=== PATIENT | male | born 1935 | race Caucasian/White ===

== ENCOUNTER 2024-01-17 14:02 | Inpatient (IN) | payer MEDICARE ==
[~2024-01-17] VITALS: Ht 170.2 cm; Wt 83.0 kg
[2024-01-17] VITALS (37 sets, daily range): BP systolic 97–188; BP diastolic 67–160
[2024-01-17 14:28] LABS: BASO% 0.2 % (0-3); EOS% 0.8 % (0-8); IMMATURE GRANULOCYTES 0.2 % (0.0-5.0); LYMPH% 7.8 % (15-41); MEAN CORPUSCULAR HGB 31.6 pG CALC (26.0-32.0); MEAN CORPUSCULAR HGB CONC 31.6 g/dL CAL (32.0-36.0); MONO% 7.3 % (2-13); NEUT# 8.28 thou/uL (1.82-7.42); NEUT% 83.7 % (42-76); RED BLOOD COUNT 5.57 mill/uL (4.70-6.10); RED CELL DISTRI WIDTH 12.5 % (11.5-15.5)
[2024-01-17 14:29] LABS: HEMATOCRIT 55.7 % (39.0-50.0); HEMOGLOBIN 17.6 g/dl (14.0-18.0)
[2024-01-17 14:51] LABS: INTERNATIONAL NORMALIZED RATIO 1.1 RATIO (0.7-1.3); PROTHROMBIN TIME 10.5 SECONDS (9.0-12.5)
[2024-01-17 14:53] LABS: ALBUMIN 4.6 g/dL (3.2-5.0); BUN 34 mg/dL (8-23); BUN/CREATININE RATIO 28 (12-20 (CALC)); CALCULATED LDLCHOLESTEROL 100 mg/dL (62-129 (CALC)); CARBON DIOXIDE 20 mmol/l (22-30); CHLORIDE 111 mmol/l (95-108); CHOLESTEROL HDL RATIO 5.1 (<4.4 (CALC)); CREATININE 1.2 mg/dL (0.7-1.3); GFR FOR AFR.AMER. > 60 ML/MIN (>=60 (CALC)); GFR OTHER RACES 57 ML/MIN (>=60 (CALC)); HDL CHOLESTEROL 40 mg/dL (39.0-59.0); SGOT/AST 36 u/l (19-48); TOTAL CHOLESTEROL 205 mg/dl (0-199); TOTAL TRIGLYCERIDES 322 mg/dl (0-149); VLDL CHOLESTROL 64 mg/dl (0-38 (CALC))
[2024-01-17 15:02] LABS: ALKALINE PHOSPHATASE 91 u/l (38-126); ANION GAP 24 (6-22 (CALC)); BILIRUBIN, TOTAL 0.9 mg/dL (0.2-1.3); SODIUM 150 mmol/l (137-146)
[2024-01-17] MEDS ORDERED: INSULIN REGULAR (HUMAN) IN SOD 100 ML IV ONE (15:25)
[2024-01-17] MEDS ORDERED: INSULIN REGULAR (HUMAN) 100 UNIT/ML INJ IV ONE (15:25)
[2024-01-17] MEDS ORDERED: SODIUM CHLORIDE 0.9% 1,000 ML IV ONE ×2 (15:25→18:20)
[2024-01-17] MEDS ORDERED: ASPIRIN 81 MG/TAB PO ONE ×2 (17:55)
[2024-01-17] MEDS ORDERED: MAGNESIUM HYDROXIDE 30 ML UDC PO PRN (18:20)
[2024-01-17] MEDS ORDERED: DEXTROSE 5% w/NACL 0.45 1,000 ML IV PRN (18:20)
[2024-01-17] MEDS ORDERED: ACETAMINOPHEN 325 MG/TAB PO PRN (18:20)
[2024-01-17] MEDS ORDERED: SODIUM CHLORIDE 0.45% 1,000 ML IV PRN (18:20)
[2024-01-17] MEDS ORDERED: D5 1/2 NaCL W/KCL 40MEQ 1,000 ML IV PRN (18:20)
[2024-01-17] MEDS ORDERED: INSULIN REGULAR (HUMAN) IN SOD 100 ML IV PRN (18:20)
[2024-01-17] MEDS ORDERED: POTASSIUM CHLORIDE 40 MEQ in SODIUM CHLORIDE 0.45% 1,000 ML IV PRN (18:20)
[2024-01-17] MEDS ORDERED: GABAPENTIN300 M2 PO (20:33)
[2024-01-17] MEDS ORDERED: METFORMIN500 M2 PO (20:33)
[2024-01-17] MEDS ORDERED: FISH OIL1000 M1 PO (20:34)
[2024-01-17] MEDS ORDERED: ZINC50 M1 PO (20:34)
[2024-01-17] MEDS ORDERED: TAMSULOSIN0.4 MG PO (20:35)
[2024-01-17] MEDS ORDERED: VITAMIN C500 M6 PO (20:35)
[2024-01-17] MEDS ORDERED: MULTI VIT PO (20:35)
[2024-01-17] MEDS ORDERED: GLUCOSAMI11 PO (20:36)
[2024-01-17] MEDS ORDERED: COQ-10100 MG PO (20:36)
[2024-01-17] MEDS ORDERED: SIMVASTATIN20 M1 PO (20:37)
[2024-01-17] MEDS ORDERED: ENOXAPARIN SODIUM 40 MG/0.4 ML SYR SC SCH (21:00)
[2024-01-17 22:57] LABS: BUN 27 mg/dL (8-23); BUN/CREATININE RATIO 30 (12-20 (CALC)); CARBON DIOXIDE 24 mmol/l (22-30); CREATININE 0.9 mg/dL (0.7-1.3); GFR FOR AFR.AMER. > 60 ML/MIN (>=60 (CALC)); GFR OTHER RACES > 60 ML/MIN (>=60 (CALC))
[2024-01-17 22:58] LABS: ANION GAP 14 (6-22 (CALC)); CHLORIDE 125 mmol/l (95-108); POTASSIUM 3.7 mmol/l (3.5-5.1); SODIUM 159 mmol/l (137-146)
[2024-01-18] VITALS (47 sets, daily range): BP systolic 96–158; BP diastolic 62–116
[2024-01-18 02:41] LABS: ANION GAP 12 (6-22 (CALC)); BUN 26 mg/dL (8-23); BUN/CREATININE RATIO 30 (12-20 (CALC)); CARBON DIOXIDE 26 mmol/l (22-30); CHLORIDE 124 mmol/l (95-108); CREATININE 0.9 mg/dL (0.7-1.3); GFR FOR AFR.AMER. > 60 ML/MIN (>=60 (CALC)); GFR OTHER RACES > 60 ML/MIN (>=60 (CALC)); POTASSIUM 4.1 mmol/l (3.5-5.1); SODIUM 158 mmol/l (137-146)
[2024-01-18 05:46] LABS: BASO% 0.3 % (0-3); HEMATOCRIT 51.7 % (39.0-50.0); HEMOGLOBIN 16.1 g/dl (14.0-18.0); IMMATURE GRANULOCYTES 0.2 % (0.0-5.0); LYMPH% 10.5 % (15-41); MEAN CELL VOLUME 100.8 fL CALC (80.0-100.0); MEAN CORPUSCULAR HGB 31.4 pG CALC (26.0-32.0); MEAN CORPUSCULAR HGB CONC 31.1 g/dL CAL (32.0-36.0); MONO% 6.9 % (2-13); NEUT# 7.92 thou/uL (1.82-7.42); NEUT% 73.1 % (42-76); RED BLOOD COUNT 5.13 mill/uL (4.70-6.10); RED CELL DISTRI WIDTH 12.6 % (11.5-15.5)
[2024-01-18 06:06] LABS: ALBUMIN 3.7 g/dL (3.2-5.0); ALKALINE PHOSPHATASE 61 u/l (38-126); ANION GAP 11 (6-22 (CALC)); BILIRUBIN, TOTAL 0.8 mg/dL (0.2-1.3); BUN 25 mg/dL (8-23); BUN/CREATININE RATIO 32 (12-20 (CALC)); CARBON DIOXIDE 24 mmol/l (22-30); CHLORIDE 126 mmol/l (95-108); CREATININE 0.8 mg/dL (0.7-1.3); GFR FOR AFR.AMER. > 60 ML/MIN (>=60 (CALC)); GFR OTHER RACES > 60 ML/MIN (>=60 (CALC)); MAGNESIUM 2.4 mg/dL (1.6-2.3); POTASSIUM 3.9 mmol/l (3.5-5.1); SGOT/AST 29 u/l (19-48); SODIUM 157 mmol/l (137-146); TOTAL PROTEIN 5.9 g/dL (6.3-8.2)
[2024-01-18 07:55] LABS: URINE BILIRUBIN - DIPSTICK Negative (NEGATIVE); URINE BLOOD DIPSTICK Negative (NEGATIVE); URINE GLUCOSE - DIPSTICK >=1000 mg/dL (NEGATIVE); URINE KETONE 15 mg/dL (NEGATIVE); URINE LEUK ESTERASE Negative (NEGATIVE); URINE NITRITE - DIPSTICK Negative (Negative); URINE PROTEIN - DIPSTICK Trace mg/dL (NEG-TRACE); URINE UROBILINOGEN - DIPSTICK 0.2 E.U./dL (0.2)
[2024-01-18 07:59] LABS: URINE COLOR Yellow
[2024-01-18] MEDS ORDERED: SODIUM CHLORIDE 0.45% 1,000 ML IV PRN (08:30)
[2024-01-18] MEDS ORDERED: DEXTROSE 250 ML IV PRN ×2 (08:30)
[2024-01-18] MEDS ORDERED: ASPIRIN 81 MG/TAB PO SCH (09:00)
[2024-01-18] MEDS ORDERED: INSULIN LISPRO 100 UNITS/ML ML SC SCH (11:00)
[2024-01-18 12:04] LABS: ANION GAP 14 (6-22 (CALC)); BUN 22 mg/dL (8-23); BUN/CREATININE RATIO 28 (12-20 (CALC)); CARBON DIOXIDE 23 mmol/l (22-30); CHLORIDE 123 mmol/l (95-108); CREATININE 0.8 mg/dL (0.7-1.3); GFR FOR AFR.AMER. > 60 ML/MIN (>=60 (CALC)); GFR OTHER RACES > 60 ML/MIN (>=60 (CALC)); POTASSIUM 3.9 mmol/l (3.5-5.1); SODIUM 155 mmol/l (137-146)
[2024-01-18 15:37] LABS: ANION GAP 13 (6-22 (CALC)); BUN 22 mg/dL (8-23); BUN/CREATININE RATIO 30 (12-20 (CALC)); CARBON DIOXIDE 25 mmol/l (22-30); CHLORIDE 121 mmol/l (95-108); CREATININE 0.7 mg/dL (0.7-1.3); GFR FOR AFR.AMER. > 60 ML/MIN (>=60 (CALC)); GFR OTHER RACES > 60 ML/MIN (>=60 (CALC)); POTASSIUM 4.1 mmol/l (3.5-5.1); SODIUM 155 mmol/l (137-146)
[2024-01-18 18:32] LABS: ANION GAP 16 (6-22 (CALC)); BUN 23 mg/dL (8-23); BUN/CREATININE RATIO 29 (12-20 (CALC)); CARBON DIOXIDE 21 mmol/l (22-30); CHLORIDE 120 mmol/l (95-108); CREATININE 0.8 mg/dL (0.7-1.3); GFR FOR AFR.AMER. > 60 ML/MIN (>=60 (CALC)); GFR OTHER RACES > 60 ML/MIN (>=60 (CALC)); POTASSIUM 3.7 mmol/l (3.5-5.1); SODIUM 153 mmol/l (137-146)
[2024-01-18] MEDS ORDERED: INSULIN DETEMIR 100 UNITS/ML SC SCH ×2 (21:00)
[2024-01-18] MEDS ORDERED: ATORVASTATIN CALCIUM 40 MG/TAB PO SCH (21:00)
[2024-01-18] MEDS ORDERED: DEXTROSE 5% 1,000 ML IV PRN (21:15)
[2024-01-19 00:23] VITALS: BP 115/60
[2024-01-19 04:15] VITALS: BP 120/55
[2024-01-19 04:48] LABS: BASO% 0.4 % (0-3); EOS% 16.1 % (0-8); HEMATOCRIT 49.4 % (39.0-50.0); HEMOGLOBIN 15.6 g/dl (14.0-18.0); IMMATURE GRANULOCYTES 0.1 % (0.0-5.0); LYMPH% 16.1 % (15-41); MEAN CELL VOLUME 100.8 fL CALC (80.0-100.0); MEAN CORPUSCULAR HGB 31.8 pG CALC (26.0-32.0); MEAN CORPUSCULAR HGB CONC 31.6 g/dL CAL (32.0-36.0); MONO% 6.1 % (2-13); NEUT# 4.88 thou/uL (1.82-7.42); NEUT% 61.2 % (42-76); RED BLOOD COUNT 4.9 mill/uL (4.70-6.10); RED CELL DISTRI WIDTH 12.8 % (11.5-15.5)
[2024-01-19 05:02] LABS: ALBUMIN 3.4 g/dL (3.2-5.0); ALKALINE PHOSPHATASE 58 u/l (38-126); ANION GAP 10 (6-22 (CALC)); BILIRUBIN, TOTAL 0.8 mg/dL (0.2-1.3); BUN 20 mg/dL (8-23); BUN/CREATININE RATIO 29 (12-20 (CALC)); CARBON DIOXIDE 23 mmol/l (22-30); CHLORIDE 120 mmol/l (95-108); CPK 106 u/l (55-170); CREATININE 0.7 mg/dL (0.7-1.3); GFR FOR AFR.AMER. > 60 ML/MIN (>=60 (CALC)); GFR OTHER RACES > 60 ML/MIN (>=60 (CALC)); MAGNESIUM 2.3 mg/dL (1.6-2.3); POTASSIUM 3.5 mmol/l (3.5-5.1); SGOT/AST 31 u/l (19-48); SODIUM 150 mmol/l (137-146); TOTAL PROTEIN 5.7 g/dL (6.3-8.2)
[2024-01-19 08:51] VITALS: BP 129/61
[2024-01-19 10:55] VITALS: BP 121/51
[2024-01-19 15:05] VITALS: BP 139/65
[2024-01-19 16:33] LABS: ANION GAP 12 (6-22 (CALC)); BUN 19 mg/dL (8-23); BUN/CREATININE RATIO 32 (12-20 (CALC)); CARBON DIOXIDE 24 mmol/l (22-30); CHLORIDE 113 mmol/l (95-108); CREATININE 0.6 mg/dL (0.7-1.3); GFR FOR AFR.AMER. > 60 ML/MIN (>=60 (CALC)); GFR OTHER RACES > 60 ML/MIN (>=60 (CALC)); POTASSIUM 3.5 mmol/l (3.5-5.1); SODIUM 146 mmol/l (137-146)
[2024-01-19] MEDS ORDERED: METFORMIN HCL1000 MG PO (17:35)
[2024-01-19 19:06] VITALS: BP 122/78
[2024-01-20 00:06] VITALS: BP 117/67
[2024-01-20 03:59] VITALS: BP 122/70
[2024-01-20 06:41] VITALS: BP 120/72
[2024-01-20 06:46] LABS: BASO% 0.4 % (0-3); EOS% 15.9 % (0-8); HEMATOCRIT 44.7 % (39.0-50.0); HEMOGLOBIN 14.2 g/dl (14.0-18.0); IMMATURE GRANULOCYTES 0.4 % (0.0-5.0); LYMPH% 19.8 % (15-41); MEAN CELL VOLUME 97.2 fL CALC (80.0-100.0); MEAN CORPUSCULAR HGB 30.9 pG CALC (26.0-32.0); MEAN CORPUSCULAR HGB CONC 31.8 g/dL CAL (32.0-36.0); MONO% 4.8 % (2-13); NEUT# 3.03 thou/uL (1.82-7.42); NEUT% 58.7 % (42-76); RED BLOOD COUNT 4.6 mill/uL (4.70-6.10); RED CELL DISTRI WIDTH 12.3 % (11.5-15.5)
[2024-01-20 06:57] LABS: ANION GAP 7 (6-22 (CALC)); BUN 14 mg/dL (8-23); BUN/CREATININE RATIO 25 (12-20 (CALC)); CARBON DIOXIDE 25 mmol/l (22-30); CHLORIDE 113 mmol/l (95-108); CREATININE 0.6 mg/dL (0.7-1.3); GFR FOR AFR.AMER. > 60 ML/MIN (>=60 (CALC)); GFR OTHER RACES > 60 ML/MIN (>=60 (CALC)); SODIUM 142 mmol/l (137-146)
[2024-01-20] MEDS ORDERED: metFORMIN HYDROCHLORIDE 500 MG/TAB PO SCH (07:30)
[2024-01-20] MEDS ORDERED: CYANOCOBALAMIN 500 MCG/TAB ( B12) PO SCH (09:00)
[2024-01-20 10:38] VITALS: BP 129/76
[2024-01-20 15:42] VITALS: BP 116/63
[2024-01-20] MEDS ORDERED: POTASSIUM CHLORIDE 20 MEQ/PKT POWDER PO ONE (17:05)
[2024-01-20 19:27] VITALS: BP 132/77
[2024-01-21] VITALS (7 sets, daily range): BP systolic 115–125; BP diastolic 52–65
[2024-01-21 05:19] LABS: BASO% 0.5 % (0-3); EOS% 16.4 % (0-8); HEMATOCRIT 45.7 % (39.0-50.0); HEMOGLOBIN 14.8 g/dl (14.0-18.0); IMMATURE GRANULOCYTES 0.7 % (0.0-5.0); LYMPH% 25.6 % (15-41); MEAN CORPUSCULAR HGB 31.4 pG CALC (26.0-32.0); MEAN CORPUSCULAR HGB CONC 32.4 g/dL CAL (32.0-36.0); MONO% 6.2 % (2-13); NEUT# 2.84 thou/uL (1.82-7.42); NEUT% 50.6 % (42-76); RED BLOOD COUNT 4.71 mill/uL (4.70-6.10); RED CELL DISTRI WIDTH 11.9 % (11.5-15.5)
[2024-01-21 05:39] LABS: ANION GAP 9 (6-22 (CALC)); BUN 13 mg/dL (8-23); BUN/CREATININE RATIO 21 (12-20 (CALC)); CARBON DIOXIDE 23 mmol/l (22-30); CHLORIDE 111 mmol/l (95-108); CREATININE 0.6 mg/dL (0.7-1.3); GFR FOR AFR.AMER. > 60 ML/MIN (>=60 (CALC)); GFR OTHER RACES > 60 ML/MIN (>=60 (CALC)); POTASSIUM 3.5 mmol/l (3.5-5.1); SODIUM 140 mmol/l (137-146)
[2024-01-21] MEDS ORDERED: POTASSIUM CHLORIDE 20 MEQ/TAB PO SCH (09:30)
[2024-01-21] MEDS ORDERED: LEVEMIR100 UNIT SC (14:32)
== END 2024-01-21 16:12 | DRG 637 ==
LOC: ED 14:02 → ED-I 14:26 → ED 14:26 → MS2 18:02 → ED-I 18:02 → MS2 01-18 11:58
PROVIDERS: Family Medicine; ADMIT Student in an Organized Health Care Education/Training Program; ATTEND Student in an Organized Health Care Education/Training Program
DX: E11.00 Type 2 diabetes mellitus with hyperosmolarity without nonketotic hyperglycemic-hyperosmolar coma (NKHHC) (principal); G93.41 Metabolic encephalopathy; G45.9 Transient cerebral ischemic attack, unspecified; R47.01 Aphasia; I10 Essential (primary) hypertension; E78.5 Hyperlipidemia, unspecified; D64.9 Anemia, unspecified; Z66 Do not resuscitate; Z79.84 Long term (current) use of oral hypoglycemic drugs; Z20.822 Contact with and (suspected) exposure to COVID-19
CPT/HCPCS: J1650; Q9967